=== PATIENT | female | born 1960 | race Caucasian/White ===

== ENCOUNTER 2017-05-11 18:53 | Emergency (ER) | payer MEDICAID ==
[~2017-05-11] VITALS: Ht 157.5 cm; Wt 56.7 kg
[2017-05-11 18:58] VITALS: BP 147/79
== END 2017-05-11 23:51 | disposition left against medical advice (07) ==
LOC: ER 19:09
DX: R51 Headache (principal); Z53.21 Procedure and treatment not carried out due to patient leaving prior to being seen by health care provider
CPT/HCPCS: 70450